=== PATIENT | female | born 1960 | race Caucasian/White ===

== ENCOUNTER 2019-03-29 08:18 | Day surgery (SDC) | payer BC ==
[~2019-03-29 08:18] MED LIST: Sodium Chloride 0.9% 10 ML ONE
[2019-03-29] MEDS ORDERED: Propofol 200 MG/20 ML SDV ONE ×2 (08:36→10:02)
[2019-03-29] MEDS ORDERED: Midazolam 1 MG/ML 2 ML SDV ONE (08:37)
[2019-03-29] MEDS ORDERED: fentaNYL 100 MCG/2 ML SDV ONE (08:37)
[2019-03-29] MEDS: Sodium Chloride 0.9% 1,000 ML IV SCH (09:31)
[2019-03-29] MEDS ORDERED: Lidocaine 1% w/EPINEPHrine 50 ML, Sodium Bicarbonate 5 MEQ in Sodium Chloride 0.9% 950 ML INJECT ONE (09:45)
[2019-03-29] MEDS ORDERED: Lactated Ringers 1,000 ML ONE (09:58)
[2019-03-29] MEDS: Lidocaine 1% with EPINEPHrine 1:100,000 50 ML MDV ONE (10:10)
[2019-03-29] MEDS: Sodium Chloride 0.9% 10 ML SDV ONE (10:10)
[2019-03-29] MEDS: Sodium Tetradecyl Sulfate 1% 20 MG/2 ML SDV ONE (10:10)
[2019-03-29 11:44] VITALS: BP 116/64; PULSE 81
--- NOTE | 2019-03-29 12:46 | OR ---
DATE OF PROCEDURE: 03/29/2019 SURGEON: Jasbir Avalos MD PROCEDURES: 1. Radiofrequency ablation of left greater saphenous vein. 2. Sclerotherapy of left leg, multiple. 3. Compression wrap, left leg, ([id number]). COMPLICATIONS: None. M[employer]: None. ANESTHESIA: MAC. PREOPERATIVE DIAGNOSIS: Venous insufficiency. POSTOPERATIVE DIAGNOSIS: Venous insufficiency. RISKS: Risks, benefits, alternatives, and limitations including, but not limited to infection, bleeding, and DVT formation were explained to the patient, who wished to proceed. PROCEDURE IN DETAIL: The patient was placed in supine position. Left GSV was accessed at the level of the ankle first. This was accessed using a 21-gauge needle, then exchanged for a 35,000th wire, then exchanged for a 7-[place] sheath. The RFA probe was advanced to approximately 8 cm from the saphenofemoral junction. This was not able to be advanced further due to significant tortuosity. Tumescent fluid was injected in a 1-cm jacket around this. This was verified a second and a third time. Direct even pressure was held as the probe was deployed x2 proximally and distally, and x1 in all other segments. Sheath and device were then removed. Direct pressure was held for 10 minutes and Dermabond was applied. Sclerotherapy was then performed of left leg using 0.33% sodium tetradecyl. There were 3 on the left side. They ranged in size from 1 to 3 cm. Two-layer two-stage compression wrapping was then performed in a [id number] gradient of 20 mmHg pressure. This was a amkktu-iy-hstbs confirmation. The patient tolerated the procedure well. Jasbir Avalos MD /[id number]
== END 2019-03-29 11:47 | disposition home or self-care (01) ==
LOC: JP.SDS 08:18
PROVIDERS: ATTEND Surgery
DX: I87.2 Venous insufficiency (chronic) (peripheral) (principal); E07.9 Disorder of thyroid, unspecified; Z87.891 Personal history of nicotine dependence
CPT/HCPCS: J1642; J2250; J2704; J3010; J7030; J7120

== ENCOUNTER 2023-07-28 07:44 | Day surgery (SDC) | payer BC ==
[2023-07-28] MEDS: Sodium Chloride 0.9% 1,000 ML IV SCH (08:33)
[2023-07-28] MEDS ORDERED: fentaNYL 50 MCG/ML SDV ONE (08:39)
[2023-07-28] MEDS ORDERED: Midazolam 1 MG/ML 2 ML SDV ONE (08:39)
[2023-07-28] MEDS ORDERED: Propofol 200 MG/20 ML SDV ONE (08:39)
== END 2023-07-28 11:00 | disposition home or self-care (01) ==
LOC: JP.SDS 07:44
PROVIDERS: ATTEND Surgery
DX: K21.9 Gastro-esophageal reflux disease without esophagitis (principal); R10.13 Epigastric pain; I10 Essential (primary) hypertension
CPT/HCPCS: 88305; J2250; J2704; J3010; J7030